=== PATIENT | female | born 1995 | race Caucasian/White ===

== ENCOUNTER 2022-08-29 09:33 | Emergency (ER) | payer MEDICAID ==
[~2022-08-29] VITALS: Ht 167.6 cm; Wt 79.0 kg
[2022-08-29 09:45] VITALS: BP 133/76
[2022-08-29] MEDS ORDERED: AMOX-494 MT (12:52)
== END 2022-08-29 13:33 | disposition home or self-care (01) ==
LOC: ER 09:33
DX: H66.91 Otitis media, unspecified, right ear (principal); J02.9 Acute pharyngitis, unspecified
CPT/HCPCS: 99283

== ENCOUNTER 2022-09-17 02:29 | Emergency (ER) | payer MEDICAID ==
[~2022-09-17] VITALS: Ht 152.4 cm; Wt 93.0 kg
[~2022-09-17 02:29] MED LIST: AMOX-494 MT
[2022-09-17 03:11] VITALS: BP 122/94
[2022-09-17] MEDS ORDERED: PROT20 MT (06:27)
[2022-09-17] MEDS ORDERED: VISCOUS LIDOCAINE 2% 15 ML UDC MM ONE (06:30)
[2022-09-17] MEDS ORDERED: MAGNESIUM/ALUMINUM HYDROXIDE/SIMETHICONE 30ML UDC PO ONE (06:30)
[2022-09-17] MEDS ORDERED: FAMOTIDINE 20MG TABLET PO ONE (06:30)
== END 2022-09-17 06:52 | disposition home or self-care (01) ==
LOC: ER 02:29
DX: K21.9 Gastro-esophageal reflux disease without esophagitis (principal)
CPT/HCPCS: 99283

== ENCOUNTER 2023-02-25 00:15 | Emergency (ER) | payer MEDICAID ==
[~2023-02-25] VITALS: Ht 152.4 cm; Wt 92.5 kg
[~2023-02-25 00:15] MED LIST changes: +PROT20 MT
[2023-02-25 00:17] VITALS: O2SAT 98
[2023-02-25] MEDS ORDERED: IBUPROFEN 600MG TABLET PO ONE (01:15)
[2023-02-25] MEDS ORDERED: SULF1TAB48 MT (01:16)
[2023-02-25] MEDS ORDERED: IBUP-2028 MT (01:17)
[2023-02-25 01:43] VITALS: BP 115/74
[2023-02-25 01:58] VITALS: PULSE 103; RESP 14; TEMP 98.2
== END 2023-02-25 01:59 | disposition home or self-care (01) ==
LOC: ER 00:29
DX: L02.211 Cutaneous abscess of abdominal wall (principal); J45.909 Unspecified asthma, uncomplicated; K21.9 Gastro-esophageal reflux disease without esophagitis
CPT/HCPCS: 99282

== ENCOUNTER 2023-11-27 23:51 | Emergency (ER) | payer MEDICAID ==
[~2023-11-27] VITALS: Ht 152.4 cm; Wt 95.0 kg
[~2023-11-27 23:51] MED LIST changes: +IBUP-2028 MT; +SULF1TAB48 MT
[2023-11-28 00:01] VITALS: O2SAT 100
[2023-11-28 01:03] LABS: BASOPHILS % 0.4 % (0.0-2.0); EOSINOPHILS % 0.7 % (0.0-5.0); HEMATOCRIT. 41.3 % (36.0-48.0); HEMOGLOBIN. 14.2 g/dL (12.0-16.0); LYMPHOCYTES % 9.6 % (20.0-50.0); MEAN CORPUSCULAR HEMOGLOBIN 31.4 pg (28.0-32.0); MEAN CORPUSCULAR HGB CONC 34.3 g/dL (31.0-37.0); MEAN CORPUSCULAR VOLUME 91.7 fL (81.0-99.0); MEAN PLATELET VOLUME 8.3 fl (7.4-10.4); MONOCYTES % 4.6 % (2.0-8.0); NEUTROPHILS % 84.7 % (40.0-76.0); PLATELET 353 x1000/uL (130-400); RED CELL DISTRIBUTION WIDTH 12.5 % (11.6-14.6); WHITE BLOOD COUNT 13.3 x1000/uL (4.5-11.0)
[2023-11-28 01:44] LABS: ALANINE AMINOTRANSFERASE 37 IU/L (10-49); ALBUMIN 4.8 g/dL (3.2-4.8); ASPARTATE AMINOTRANSFERASE 29 IU/L (<34); BILIRUBIN TOTAL 0.9 mg/dL (0.1-1.0); CALCIUM 8.7 mg/dL (8.7-10.4); CARBON DIOXIDE 25 mEq/L (21-32); CHLORIDE 103 mEq/L (98-107); CREATININE 0.7 mg/dL (0.6-1.0); GLUCOSE 152 mg/dL (70-105); POTASSIUM 4.2 mEq/L (3.5-5.1); PROTEIN TOTAL 8.1 g/dL (6.0-8.3); SODIUM 135 mEq/L (136-145); UREA NITROGEN BLOOD 12 mg/dL (9-23)
[2023-11-28 02:40] LABS: HCG SCREEN NEGATIVE
[2023-11-28] MEDS: ONDANSETRON HCL 4MG/2ML INJ IV NR (02:48)
[2023-11-28] MEDS: MORPHINE SULFATE 4 MG/ML INJ (FOR IV/IM USE) IV NR (02:48)
[2023-11-28] MEDS: SODIUM CHLORIDE 0.9% 1,000 ML IV ONE ×2 (03:00→06:35)
[2023-11-28] MEDS: FAMOTIDINE 20MG/2ML VIAL IV NR (03:00)
[2023-11-28 03:12] LABS: LACTIC ACID 2.7 mmol/L (0.4-2.0)
[2023-11-28 04:19] LABS: CLARITY URINE CLEAR (CLEAR); COLOR URINE YELLOW (YELLOW); GLUCOSE URINE NEGATIVE (NEGATIVE); KETONES URINE 1+ (NEGATIVE); LEUKOCYTE ESTERASE URINE NEGATIVE (NEGATIVE); NITRITE URINE NEGATIVE (NEGATIVE); OCCULT BLOOD URINE TRACE (NEGATIVE); PROTEIN URINE NEGATIVE (NEGATIVE); SPECIFIC GRAVITY URINE 1.008 (1.005-1.030); UROBILINOGEN URINE 0.2 E.U./dL (0.2-1.0)
[2023-11-28 04:39] LABS: BACTERIA URINE NONE SEEN; RBC URINE NONE SEEN /hpf (0-2); SQUAMOUS EPITHELIAL CELL URINE NONE SEEN /lpf (RARE/1+); WBC URINE NONE SEEN /hpf (0-2)
[2023-11-28] MEDS: CEFTRIAXONE 1GM/50ML 50 ML IV NR (06:07)
[2023-11-28 10:49] VITALS: BP 149/89; PULSE 67; RESP 12; TEMP 98.6
== END 2023-11-28 10:55 | disposition short-term general hospital (02) ==
LOC: ER 23:51
DX: K81.9 Cholecystitis, unspecified (principal)
CPT/HCPCS: 99285; 96365; 96375; 76705; 96366; 96361; 80053; 81003; 84703; 83605; 83690; 85025; 87040; 36415; 93005; J0696; J3490; J2405; J2270